=== PATIENT | female | born 1945 | race Caucasian/White ===

== ENCOUNTER 2024-08-30 10:17 | Outpatient (AMB) | payer OTHER, SELFPAY ==
--- NOTE | 2024-08-30 10:46 | MHC.OFFVIS ---
Vital Signs 08/30/24 10:47 Height 5 ft 6 in Weight 170 lb BMI 27.4 BP 122/74 Blood Pressure Location Rt brachial Position Sitting Pulse 78 Pulse Source Pulse Oximeter Pulse Oximetry (%) 95 Oxygen Delivery Method Room Air Intake Visit Reasons: dyspnea Senior Application Security Consultant Required: No Pressure Tank Operator: Pressure Tank Operator offered & declined Accompanied by: Self / Same As Patient Allergies lisinopril Adverse Reaction (Uncoded 08/30/24 11:20) cough Medication List - Last Reconciled 08/30/24 by Justyna Nolasco LPN celecoxib 200 mg PO DAILY cetirizine 10 mg PO DAILY PRN fluoxetine 10 mg PO DAILY fluticasone furoate-vilanterol 100-25 mcg/dose (Breo Ellipta) 1 inh inhalation DAILY gabapentin 100 mg PO TID hydroxyzine HCl 25 mg PO DAILY loratadine 10 mg PO DAILY meclizine 12.5 mg PO TID PRN pantoprazole 40 mg PO DAILY rosuvastatin 40 mg PO DAILY valsartan 80 mg PO DAILY HPI HPI dyspnea: Details: Zahra is a pleasant 79 year old female, former smoker, quit 30+ years ago with approximately 10 pack year history with underlying GERD. She was referred by PCP for pulmonary evaluation for ongoing dyspnea. She reports dyspnea on exertion has been progressively worsening over the last few years. She reports h/o asthma as a child, unsure if required intubation. She reports dyspnea, wheezing and intermittent dry cough as well as paroxsymal nocturnal dyspnea. PCP prescribed albuterol MDI which she has been using BID with good effect. Recent PFT suggestive of reactive airway disease with 10% improvement after bronchodilator. Reportedly recent CXR unremarkable. Denies prior h/o cardiac disease, BLE edema or orthopnea. She reports chronic rhinitis, no recent allergy testing. No pets at home. Denies any occupational exposures. Denies any pertinent family history. [facility] Social History (Updated 08/30/24 @ 10:54 by Justyna Nolasco LPN) Patient Tobacco Use Status: Former Tobacco user Tobacco use type: Cigarette Cigarette Packs Per Day: 2 Years Smoked: 20 year smoker Review of Systems Const Denies chills, Denies excessive sweating, Denies fever(s), Denies headache(s) and Denies night sweats Eyes Denies dry eyes, Denies irritation and Denies itchy eyes ENT Reports Normal hearing present, Denies headache(s), Denies nasal congestion, Denies post nasal drip and Denies sore throat Card Denies chest pain, Denies chest pain at rest, Denies chest pain with activity, Denies claudication, Denies leg edema, Reports dyspnea on exertion, Denies orthopnea and Denies paroxysmal nocturnal dyspnea Resp Denies chest congestion, Reports cough, Denies hemoptysis, Denies excessive phlegm production, Denies pain on inspiration, Denies pain with cough, Reports dyspnea on exertion, Denies stridor and Reports wheezing Musc Denies myalgias Neuro Reports Normal hearing present and Denies headache(s) Endo Denies excessive sweating Garret/Lymph Denies lymphadenopathy Aller/Immun Denies itchy eyes, Denies seasonal rhinorrhea and Reports wheezing Physical Exam Vital Signs: Last Vital Signs Pulse 78 08/30/24 10:47 BP 122/74 08/30/24 10:47 Pulse Ox 95 08/30/24 10:47 Oxygen Delivery Method Room Air 08/30/24 10:47 BMI result Body Mass Index 27.4 Const General: cooperative, healthy appearing, comfortable, no acute distress, well developed and alert Orientation/consciousness: patient oriented x3 Limitations: no limitations HEENT Head: Yes normal to inspection, Yes normocephalic and Yes atraumatic Ears: hearing grossly normal bilaterally and external ears normal Eyes General: appearance normal, both eyes and all related structures Eyelids: Yes eyelids normal Sclerae: sclerae normal EOM: EOMs intact bilaterally Neck Neck: Yes normal visual inspection and Yes no lymphadenopathy Lymphatic: no lymphadenopathy noted Chest Chest palpation & inspection: normal inspection of the chest Resp Effort & Inspection: normal respiratory effort, able to speak in complete sentences, no audible wheezes, no cough, no stridor, not tachypneic, no tripod positioning and no use of accessory muscles Auscultation: clear to auscultation bilaterally Cardio Jugular venous distension: no JVD Rate: regular rate Rhythm: regular rhythm Skin Other: warm, dry General skin exam: no rashes or lesions noted Neuro General: patient oriented x3 Cranial nerves: Yes Normal hearing present Cognition (Neuro): normal cognition Gait exam (Neuro): Normal gait present Extrem General: Yes normal to inspection, Yes capillary refill normal, Yes no clubbing, cyanosis or edema and Yes no pedal edema Psych Appearance: grossly normal and well kempt Speech and movement: Normal speech and movement present and Clear speech present Affect: normal affect Attitude: cooperative Thought process: Normal thought process present Thought content: Normal thought content present Insight: Good insight present (Psych) Judgement: Good judgement present (Psych) Assessment & Plan Assessment & Plan (1) Reactive airway disease: Code(s): J45.909 - Unspecified asthma, uncomplicated Category: Medical (2) Environmental allergies: Code(s): Z91.09 - Other allergy status, other than to drugs and biological substances Category: Medical (3) Dyspnea: Code(s): R06.00 - Dyspnea, unspecified Category: Medical Plan Zahra presents for pulmonary evaluation for ongoing dyspnea, wheezing, PND and dry cough with good response to albuterol MDI. Will empirically trial Breo. Discussed importance of good oral hygiene to prevent thrush. Will also send for RAST to assess for an allergic component. Will obtain prior CXR. Will consider home sleep study given h/o PND and day time fatigue. All questions were answered and patient is in agreement of plan. Will follow up in 6-8 weeks or sooner if needed. Orders: Orders Complete Blood Count Auto Diff Today Z91.09 - Other allergy status, other than to drugs and biological substances Immunoglobulin E Today Z91.09 - Other allergy status, other than to drugs and biological substances Resp Allergy Profile Region I Today Z91.09 - Other allergy status, other than to drugs and biological substances Medications: New fluticasone furoate-vilanterol 100-25 mcg/dose (Breo Ellipta) 1 inh inhalation DAILY 60 ea 0RF Coding Level of Care Code New Pt Level 4 (58044) Diagnoses Reactive airway disease J45.909 Environmental allergies Z91.09 Dyspnea R06.00
[2024-08-30 10:47] VITALS: BP 122/74; PULSE 78; O2SAT 95; BMI 27.4
--- OUTSIDE RECORDS SUMMARY | 2024-08-30 11:31 | XMS_ITS | Patient Health Record ---
Author Organization [facility] Address [address] [place], [place] [id number] Care Team Providers Care Phone Screener Name Role Phone Eleazar JEFF, Dr. Garcia Primary Care Provider Aditya Lou Unavailable [phone] REASON FOR REFERRAL No Information MEDICATIONS Medication SIG (Take, Route, Fr equency, Duration) Notes Start Date End Date Status Tylenol 325 MG 1 tablet as needed O rally every 4 hrs Unknown Cholesterol Management Unknown Heartburn Relief 10 MG 1 tablet as neede d Orally Twice a day Unknown IMMUNIZATIONS Vaccine Route Administration Date Status Comme nts Influenza Unknown 03/27/2017 Administered Pneumococcal Unknown 03/27/2017 Administered SOCIAL HISTORY Tobacco Use: Social History Observation Description Date Details (start date - stop date) Former Smoker NA - NA Sex Assigned At : Social History Observation Description Sex Assigned At Unknown Tobacco Use/Smoking Question Answer Notes Are you a former smoker Additional Findings: Tobacco Non-User Current no n-smoker PROBLEMS Problem Type ICD Code Onset Dates Problem Status W/U Status Risk SNOMED Code Notes Problem Spondylosis without myelopathy or radiculopathy, 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 Cervical spondylosis without myelopathy ([id number]) PLAN OF TREATMENT No Information Insurance Providers Payer Name Payer Address Payer Phone Subscriber Number Group Number Insured Name Patient Relationship to Insured Coverage Start Date Coverage End Date Medicare [address] SARAH Hodge [id number] Zahra Yao Self - patient is the insured [employer] [address] [place] [address] [phone] [id number] Zahra Yao Self - patient is the insured MEDICAL (GENERAL) HISTORY Medical History History ICD Code High Cholesterol heartburn Surgical History Surgery Date(Month/Year) hysterectomy Hospitalization History Reason Date(Month/Year) see above
--- OUTSIDE RECORDS SUMMARY | 2024-08-30 11:32 | XMS_ITS | Data Portability ---
Author Organization [facility] Address [address] [place] [address] [address] [place] [address] Care Team Providers Care Systems Administration Analyst Name Role Phone GODLEN BUSH Primary Care Provider [phone] SIMBA CONNER Board Attendant [facility] Orthopedist [phone] Assessment Encounter Date Assessment Date Assessment LastModified by Organization Details LastModified Time 07/15/2020 07/15/2020 HMR reviewed and updated on today's visit? Custodial Medication Monitoring Has your patient required or used more than a 15 day supply of narcotic medication over the last 12 months for a non-terminal diagnosis? If yes, are there alternative options besides opioids for the patient's pain? Pain Plan: Anticonvulsant Therapy: For patients with a diagnosis of diabetes was a Statin prescribed: For patients diagnosed with COPD was a Beta Agonist/Anticholi nergic prescribed? For patients diagnosed with CHF was an GORDON or ARB prescribed? Beta Gissell? For patients diagnosed with Rheumatoid Arthritis was Dmard Prescribed: For patients diagnosed with Osteoporosis was a Bisphosphonate prescribed? Preventive/Screen ing Medicine. Influenza VaccinationUp to date see Vaccination Hx Pneumonia VaccinationUp to date see Vaccination Hx Retinal Eye Exam: Result: Date: ____ Osteoporosis Screening (67+y/o): COPD Spirometry performed: Date: ____ Breast Cancer Screening (52-74 y/o, every 27 mo): Colorectal Cancer Screening (50-75 y/o): Diabetes Laboratory Screening (HgA1c/Urine Micro-Creat): I discussed and/or provided education material for the following: Behavioral health referral: Case management referral: Urinary Incontinence Education Provided: yes Physical Activity Education Provided: yes maria alejandra Not available 07/15/2020 08:44:50 Plan of Treatment Reminders Order Date Submit Date Provider Last Modified By Organization Details Last Modified Time Details Appointments None recorded. Lab CMP, serum or plasma 2020 [facility] [address], [place], [address], 11:05:54 lipid panel, serum 2020 [facility] [address], [place], [address], 1 11:05:49 vitamin D, 25-hydroxy, total, serum 2020 [facility] [address], [place], [address], 10:14:46 Referral None recorded. Procedures None recorded. Surgeries None recorded. Imaging None recorded. Medication Orders famotidine 20 mg tablet 2020 021 [email or web address] Not available 09:57:31 fluoxetine 20 mg capsule 2020 021 JOHN Not available 09:57:34 meclizine 25 mg tablet [email or web address], [place], [address], 09:17:31 Celebrex 200 mg capsule 2020 021 [facility] 9668, [address], [place], [address], 1 09:36:42 rosuvastati n 40 mg tablet 2020 021 [email or web address] 4 [facility] 5154, [address], [place], [address], 1 15:39:41 pantoprazol e 40 mg tablet,naomie yed release 2020 021 [facility] 1327, [address], [place], [address], 09:36:40 hydroxyzine HCl 25 mg tablet 2020 021 wade [facility] 5724, [address], [place], [address], 09:17:27 fluoxetine 40 mg capsule 2020 021 [facility] 5729, [address], [place], [address], 09:36:50 Patient TargetsNo targets recorded. Patient Instructions Encounter Date Encounter Id Patient Instructions Last Modified By Organization Details Last Modified Time 07/15/2020 [id number] high cholesterol : care instructions Not available 07/15/2020 09:45:04 gastroesophageal reflux disease (GERD): care instructions Not available 07/15/2020 09:45:04 preventing falls : care instructions Not available 07/15/2020 09:45:03 advance directiv es: care instructions Not available 07/15/2020 09:45:04 well visit, over 65: care instructions Not available 07/15/2020 09:45:04 A healthy lifest yle: care instructions Not available 07/15/2020 09:45:04 learning about m ood disorders Not available 07/15/2020 09:45:04 12/02/2020 [id number] learning about healthy weight Not available 12/02/2020 09:56:23 obesity educatio n information Not available 12/02/2020 09:56:23 Reason for Referral None Reported. Results Created Date Observation Date Name Description Value Unit Range Abnormal Flag Note LastModifiedBy Organization Detail LastModifiedTime 07/15/19 21 07/16/2020 lipid panel cholesterol, total 199 mg/dL 100-19 9 Not Available [place] [address] [place], [address], 07/16/2020 11:05:49 07/15/19 21 07/16/2020 lipid panel triglyceride s 151 mg/dL 0-149 above high normal Not Available [place] [address] [place], [address], 07/16/2020 11:05:49 07/15/19 21 07/16/2020 lipid panel HDL cholesterol 52 mg/dL >39 Not Available [place] [address] [place], [address], 07/16/2020 11:05:49 07/15/1907/16/2020 lipid panel VLDL cholesterol sukh 27 mg/dL 5 - 40 Not Available [place] [address] [place], [address], 07/16/2020 11:05:49 07/15/1907/16/2020 lipid panel LDL chol calc ([facility]) 120 mg/dL 0 - 99 above high normal Not Available [place] [address] [place], [address], 07/16/2020 11:05:49 07/15/19 21 07/16/2020 CMP, serum or plasm a glucose, serum 87 mg/dL 65-99 Not Available [place] [address] [place], [address], 07/16/2020 11:05:54 07/15/1907/16/2020 CMP, serum or plasm a BUN 10 mg/dL 8-27 Not Available [place] [address] [place], [address], 07/16/2020 11:05:54 07/15/19 21 07/16/2020 CMP, serum or plasm a creatinine, serum 0.76 mg/dL 0.57-1 .00 Not Available [address], [place], [address], 07/16/2020 11:05:54 07/15/19 21 07/16/2020 CMP, serum or plasm a BUN/creatini ne 13 12-28 Not Available [address], [place], [address], 07/16/2020 11:05:54 07/15/19 21 07/16/2020 CMP, serum or plasm a sodium, serum 143 mmol/ L 134-14 4 Not Available [address], [place], [address], 07/16/2020 11:05:54 07/15/19 21 07/16/2020 CMP, serum or plasm a potassium 4.7 mmol/ L 3.5-5. 2 Not Available [address], [place], [address], 07/16/2020 11:05:54 07/15/19 21 07/16/2020 CMP, serum or plasm a chloride, serum 102 mmol/ L 96-106 Not Available [address], [place], [address], 07/16/2020 11:05:54 07/15/19 21 07/16/2020 CMP, serum or plasm a carbon dioxide, total 29 mmol/ L 20-29 Not Available [address], [place], [address], 07/16/2020 11:05:54 07/15/1907/16/2020 CMP, serum or plasm a calcium, serum 9.4 mg/dL 8.7-10 .3 Not Available [address], [place], [address], 07/16/2020 11:05:54 07/15/1907/16/2020 CMP, serum or plasm a protein, total, serum 6.6 g/dL 6.0-8. 5 Not Available [place] [address], [place], [address], 07/16/2020 11:05:54 07/15/1907/16/2020 CMP, serum or plasm a albumin, serum 4.4 g/dL 3.7-4. 7 Not Available [place] [address], [place], [address], 07/16/2020 11:05:54 07/15/1907/16/2020 CMP, serum or plasm a globulin, total 2.2 g/dL 1.5-4. 5 Not Available [place] [address], [place], [address], 07/16/2020 11:05:54 07/15/1907/16/2020 CMP, serum or plasm a A/G ratio 2.0 1.2-2. 2 Not Available [place] [address], [place], [address], 07/16/2020 11:05:54 07/15/1907/16/2020 CMP, serum or plasm a bilirubin, total 0.3 mg/dL 0.0-1. 2 Not Available [place] [address], [place], [address], 07/16/2020 11:05:54 07/15/1907/16/2020 CMP, serum or plasm a alkaline phosphatase, S 59 IU/L 39-117 Not Available [place] [address], [place], [address], 07/16/2020 11:05:54 07/15/1907/16/2020 CMP, serum or plasm a AST (SGOT) 26 IU/L 0-40 Not Available [place] [address], [place], [address], 07/16/2020 11:05:54 07/15/1907/16/2020 CMP, serum or plasm a ALT (SGPT) 40 IU/L 0-32 above high normal Not Available [address] [place], [address], 07/16/2020 11:05:54 07/15/19 21 07/16/2020 CMP, serum or plasm a glom filt rate, est 77 mL/mi n >59 Not Available [address], [place], [address], 07/16/2020 11:05:54 07/15/19 21 07/16/2020 CMP, serum or plasm a if -amer ican 89 mL/mi n >59 NOTE: Persi stent reduc tion for 3 month s or more in an eGFR <60 mL/mi n/1.7 3 m2 defin es CKD. Patie nts with eGFR value s >/=60 mL/mi n/1.7 3 m2 may also have CKD if evide nce of persi stent prote inuri a is prese nt. Addit ional infor yoel tarango may be found at www.k doqi. org. Not Available [address] [place], [address], 07/16/2020 11:05:54 07/15/19 21 07/17/2020 vitam in D, 25-hy droxy , total , serum vitamin D, 25-hydroxy 39.8 NG/mL 30.0-1 00.0 Vitam in D defic iency has been defin ed by the Insti tute of Medic ine and an Endoc rine Socie ty pract ice guide line as a level of serum 25-OH vitam in D less than 20 ng/mL (1,2) . The Endoc rine Socie ty went on to furth er defin e vitam in D insuf ficie ncy as a level betwe en 21 and 29 ng/mL (2). 1. IOM (Inst itute of Medic ine). 2010. Dieta ry refer ence amanuel es for calci um and D. Kathy linares [place]: [employer] . 2. Daniel ayala MF, Zuleika ey [place], Bisch off-F errar i MANNING, et al. Evalu ation , treat ment, and preve ntion of vitam in D defic iency : an Endoc rine Socie ty clini sukh pract ice guide line. JCEM. 2010; 96(7) :1911 -30. All above tests perfo rmed at: [facility] [place] ([facility]) [address] [place] [address] Not Available [facility] ([facility]) [address], [place], [address], 07/17/2020 10:14:45 Result Notes None recorded. Problems Name Problem SNOMED Code Status Onset Date Resolution Date Notes Provider Name and Address Organization Details Recorded Time Osteopen ia 054684909 Active 201308/29/13 dexa Golden Bush MD [address], [place], [address] , [facility] 6 21:36:21 Screenin g mammogra phy Active 2014 5---> 03/03/17 Golden Bush MD [address], [place], [address] , [facility] 7 18:31:06 Tenosyno vitis of fingers 620071145 Active 2015 right third finger Golden Bush MD [address], [place], [address] , [facility] - [facility] 6 10:20:23 Serous otitis media 41675607 Active 2015 MD Billy Vasquez [address], [place], [address] , [facility] - [facility] 6 10:20:33 Anemia 321306547 Active 2015 MD Billy Vasquez [address], [place], [address] , [facility] 6 10:20:49 Depressi ve disorder 30611385 Active 2015 fluoxeti ne 20-->40 Golden Bush MD [address], [place], [address] , [facility] - [facility] 0 13:19:47 Arthriti s 0154142 Active 2015 knees back and shoulder s Golden Bush MD [address], [place], [address] , [facility] 6 10:24:55 Vertigo 183371037 Active 2015 Golden Bush MD [address], [place], [address] , [facility] 6 14:21:34 Adult health examinat ion Active 2016 colon 2013/par ker said redo in 5/mammo and dexa/// declines at all Golden Bush MD [address], [place], [address] , [facility] 0 13:19:35 Fatigue 88664726 Active 2016 tsh barely off Golden Bush MD [address], [place], [address] , [facility] 7 12:41:59 Bilatera l cataract s 27979656 Active 2016 khris, s/p removal Alona Holcomb PA-C [address], [place], [address] , [facility] 1 15:51:45 Pre-surg sonia evaluati on Active 2016 cataract s// bilatera l// norbert khris Bush MD [address], [place], [address] , [facility] 7 09:36:11 Restless legs 57512454 Active 2016 ropinaro le 1 hs Golden Bush MD [address], [place], [address] , [facility] 9 07:50:10 Neck pain 56312562 Active 2016 Golden Bush MD [address], [place], [address] , [facility] 7 13:07:08 Thoracic back sprain 669935870 Active 2016 Golden Bush MD [address], [place], [address] , [facility] 7 13:07:20 Contact dermatit is 81991439 Active 2016 Golden Bush MD [address], [place], [address] , [facility] 7 17:47:21 Food poisonin g 61912127 Active 2017 wendy lettuce Golden Bush MD [address], [place], [address] , [facility] 8 17:47:46 Vitamin D deficien cy 01275249 Active 07/2015 Golden Bush MD [address], [place], [address] , [facility] 6 21:38:05 Pure hypercho lesterol emia 270755241 Active simvasta tin 40--> crestor 40 Golden Bush MD [address], [place], [address] , [facility] 9 13:40:26 Gastroes ophageal reflux disease 164375747 Active pantopra zole 40 Golden Bush MD [address], [place], [address] , [facility] 9 07:49:30 Internal hemorrho ids 85396838 Active 2018 Golden Bush MD [address], [place], [address] , [facility] 9 09:46:57 Pain of right shoulder joint 77522730043 390866 Active 2018 may inject Golden Bush MD [address], [place], [address] , [facility] 9 09:52:24 Acute bronchit is 91347570 Active 2018 Golden Bush MD [address], [place], [address] , [facility] 9 16:03:[address] [facility] 75816198 Active 2019 Golden Bush MD [address], [place], [address] , [facility] 0 11:48:26 Body mass index 25-29 - overweig ht 337340920 [facility] 09:16:47 Disorder of bone and articula r cartilag e 660265889 Completed 10/14/2015 Golden Bush MD [address], [place], [address] , [facility] 6 21:35:39 Osteopor osis 64234940 Completed 10/14/2015 Golden Bush MD [address], [place], [address] , [facility] 6 21:37:12 Dizzines s and giddines s 306471314 Active Not Available [facility] 6 04:15:17 Otalgia 18892539 Active Not Available [facility] 6 04:15:30 Nausea 457250965 Active Not Available [facility] 6 04:15:42 Problem Notes None recorded. Procedures Surgical History Date Name Laterality Status Provider Name and Address Organization Details Recorded Time 03/03/20 17 Mammogram screening completed Golden Bush MD [address], [place], [address], [facility] 03/03/2017 18:31:32 02/25/20 17 Date of Last Mammogram completed Ilsa Pinedo [facility] 12/02/2020 09:28:35 06/26/19 13 Colonoscopy completed Cami Joinerwilfrid [facility] 10/14/2015 16:10:46 03/18/20 10 Egd biopsy single/multiple completed Juanataylor Colon [facility] 08/18/2016 14:58:59 03/11/20 10 Date of Last Colonoscopy completed Juana Colon [facility] 08/18/2016 14:58:28 03/11/20 10 Colonoscopy & polypectomy completed Juanataylor Colon [facility] 08/18/2016 15:00:29 11/18/19 09 Cltx rdl shft fx w/o mnpj completed Juanataylor Colon [facility] 08/18/2016 15:02:09 Cataract Surgery completed Golden Bush MD [address] [facility] [place], [address], [facility] 04/12/2020 11:41:51 Breast Biopsy completed Juanataylor Colon [facility] 08/18/2016 15:03:19 Removal of tonsils completed Lanie Alexandra [facility] 01/12/2016 14:11:20 Hysterectomy completed Lanie ONTIVEROS Marybeth scension [facility] 01/12/2016 14:11:20 Unlisted px meckel's dvrtclm completed Juanataylor Colon [facility] 08/18/2016 15:03:13 Imaging Results None recorded. Procedure Notes None recorded. Medical Equipment None Reported. Allergies Allergen ID Allergen Name Allergen Category Reaction Reaction Severity Criticality Documentation Date Start Date Code Code System Note Provider Name and Address Organization Details Recorded Time 32779 acetamino phen / hydrocodo ne medicatio n Not available Not available Not available 10/14/2015 34211 2 RxNorm Camivivien Cabellokarli ybarra [facility] 6 16:09:43 Medications Name Sig Start Date Stop Date Status Note LastModified by Organization Details LastModified Time fluoxetine 40 mg capsule Take 1 capsule every day by oral route. 2020 active Not Available Not Available Not Avai lable amoxicillin 500 mg capsule Take 1 capsule 3 times a day by oral route. 07/15 completed Not Available Not Available Not Available prednisone 10 mg tablet take 2 tablets bid for 3 days, take 1 tablet bid for 3 days, take 1 tablet daily for 3 days 08/06 completed Not Available Not Available Not Available ofloxacin 0.3 % eye drops 09/27 completed Not Available Not Available Not Available tizanidine 4 mg tablet Take 1 tablet every 8 hours by oral route for 14 days. 08/06 completed Not Available Not Available Not Available meloxicam 15 mg tablet Take 1 tablet every day by oral route. 03/13 completed Not Available Not Available Not Available prednisone 20 mg tablet 09/27 completed Not Available Not Available Not Available Requip 1 mg tablet Take 1 tablet every day by oral route at bedtime. 09/27 completed Not Available Not Available Not Available clobetasol 0.05 % topical cream 09/27 completed Not Available Not Available Not Available ciprofloxac in 500 mg tablet Take 1 tablet every 12 hours by oral route. 11/16 completed Not Available Not Available Not Available triamcinolo ne acetonide 0.1 % topical cream 09/27 completed Not Available Not Available Not Available simvastatin 40 mg tablet Take 1 tablet(s) every day by oral route at bedtime. 07/15 completed Not Available Not Available Not Available hydrocortis one acetate 25 mg rectal suppository Insert 1 supposito ry twice a day by rectal route for 14 days. 03/13 completed Not Available Not Available Not Available Kenalog 40 mg/mL suspension for injection 1 shot im 11/16 completed Not Available Not Available Not Available Celebrex 200 mg capsule Take 1 capsule(s ) every day by oral route. active Not Available Not Available No t Available meloxicam 7.5 mg tablet 09/27 completed Not Available Not Available Not Available Zofran 4 mg tablet 1 po q 8 hours prn nausea 11/16 completed Not Available Not Available Not Available Tessalon Perles 100 mg capsule Take 1 capsule 3 times a day by oral route. 08/06 completed Not Available Not Available Not Available famotidine 20 mg tablet Take 1 tablet twice a day by oral route for 90 days. active Not Available Not Available No t Available IBU 600 mg tablet 09/27 completed Not Available Not Available Not Available meclizine 25 mg tablet TAKE 1 TABLET BY MOUTH TWICE DAILY 12/02 completed Not Available Not Available Not Available pantoprazol e 40 mg tablet,naomie yed release TAKE 1 TABLET BY MOUTH ONCE DAILY 2020 active Not Available Not Available Not Avai lable hydroxyzine HCl 25 mg tablet Take 1 tablet 4 times a day by oral route as needed. 12/02 completed Not Available Not Available Not Available acyclovir 200 mg capsule TAKE 1 CAPSULE BY MOUTH THREE TIMES DAILY 10/12 completed Not Available Not Available Not Available fluoxetine 20 mg capsule Take 1 capsule every day by oral route. active Not Available Not Available No t Available fluticasone propionate 50 mcg/actuati on nasal spray,suspe nsion 12/15 completed Not Available Not Available Not Available Bactrim DS 800 mg-160 mg tablet Take 1 tablet every 12 hours by oral route for 10 days. 08/28 completed Not Available Not Available Not Available cyclobenzap rine 5 mg tablet Take 1 tablet 3 times a day by oral route. 07/31 completed Not Available Not Available Not Available rosuvastati n 40 mg tablet Take 1 tablet every day by oral route at bedtime. active Not Available Not Available No t Available bromfenac 0.09 % eye drops 09/27 completed Not Available Not Available Not Available fluticasone propionate 11/08 completed Not Available Not Available Not Available Zostavax (PF) 19,400 unit/0.65 mL subcutaneou s suspension 09/27 completed Not Available Not Available Not Available Ninjacof 12.5 mg-12.5 mg/5 mL oral liquid Take 10 mL every 6-8 hours by oral route as needed for 10 days. 09/27 completed Not Available Not Available Not Available Fluzone High-Dose 8079-5027 (PF) 180 mcg/0.5 mL intramuscul ar syringe 11/08 completed Not Available Not Available Not Available Fluad 65yr up(PF)45 mcg(15 mcgx3)/0.5 mL intramuscul ar syringe 09/27 completed Not Available Not Available Not Available Vitals Date Recorded Body height Body mass index (BMI) Body weight Heart rate Respiratory rate Body temperature Oxygen saturation Oxygen saturation in Arterial blood by Pulse oximetry Systolic blood pressure Diastolic blood pressure Provider Name and Address Organization Details Last Updated DateTime 1 168.15 cm 27.3 kg/m2 78837.1 g 87 /min 16 /min 98.3 [degF] 98 % 98 % 124 mm[Hg] 85 mm[Hg] Lanie Alexandra [facility] 1 08:45:55 Date Recorded Body height Body mass index (BMI) Body weight Heart rate Respiratory rate Body temperature Oxygen saturation Oxygen saturation in Arterial blood by Pulse oximetry Systolic blood pressure Diastolic blood pressure Provider Name and Address Organization Details Last Updated DateTime 1 168.15 cm 28.6 kg/m2 98518.4 4 g 75 /min 18 /min 98.1 [degF] 98 % 98 % 178 mm[Hg] 90 mm[Hg] Nathan Banks [facility] 1 09:16:30 Date Recorded Body height Body mass index (BMI) Body weight Body temperature Respiratory rate Heart rate Oxygen saturation Oxygen saturation in Arterial blood by Pulse oximetry Systolic blood pressure Diastolic blood pressure Provider Name and Address Organization Details Last Updated DateTime 1 168.15 cm 28.1 kg/m2 93972.6 6 g 98.1 [degF] 18 /min 75 /min 95 % 95 % 151 mm[Hg] 84 mm[Hg] Ilsa Pinedo [facility] 1 09:15:49 Social History Question Answer Notes LastModified by Organizat ion Details LastModified Time Tobacco Smoking Status Never Smoker Cami ybarra [facility] 10/14/2015 16:11:22 Do You Have An Advance Directive? No Information not available 02/24/2017 What Is Your Level Of Alcohol Consumption? None [email or web address] Information not available 02/24/2017 Are You Blind Or Do You Have Difficulty Seeing? No [email or web address] Information not available 02/24/2017 What Is Your Level Of Caffeine Consumption? Occasional [email or web address] Information not available 02/24/2017 How Much Tobacco Do You Chew? None [email or web address] Information not available 02/24/2017 What Is Your Code Status? Full Code [email or web address] Information not available 03/13/2019 Are You Currently Employed? Yes [email or web address] Information not available 02/24/2017 Are You Deaf Or Do You Have Serious Difficulty Hearing? No [email or web address] Information not available 02/24/2017 What Type Of Diet Are You Following? REGULAR [email or web address] Information not available 02/24/2017 Which Illicit Or Recreational Drugs Have You Used? None Information not available 02/24/2017 Do You Or Have You Ever Used E-cigarettes Or Vape? 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 Single Level Home Information not available 02/24/2017 What Is Your Home Situation? Other [email or web address] Information not available 02/24/2017 Live Alone Or With Others? With Others [email or web address] Information not available 02/24/2017 Have You Had A Fall Within The Last Year With Injury No Information not available 02/24/2017 Walking With Aids? No [email or web address] Information not available 02/24/2017 What Type Of Walking Aid? None [email or web address] Information not available 02/24/2017 Patients Living Environment Safe And Secure? No [email or web address] Information not available 02/24/2017 High Risk For Falls? No [email or web address] Information not available 02/24/2017 If You Have Any Questions, Our Care Team Is Here For You. We Can Help You Find The Screening Option That Is Right For You. Would You Like To Be Given Information About Colon Cancer And Screening Options? No [email or web address] Information not available 03/13/2019 Readiness To Learn Accepting Information not available 02/24/2017 Barriers To Learning Language [email or web address] Information not available 10/23/2017 Learning Preferences No Preferences [email or web address] Information not available 02/24/2017 In The Last 12 Months Did You Skip Medications To Save Money? Yes Information not available 05/27/2019 In The Last 12 Months, Was There A Time When You Needed To See A Doctor But Could Not Because Of Cost? No Information not available 05/27/2019 In The Last 12 Months, Have You Ever Had To Go Without Health Care Because You Didn? t Have A Way To Get There? No Information not available 05/27/2019 In The Last 12 Months Did You Ever Eat Less Than You [place] You Should Because There Wasn? t Enough Money For Food? No Information not available 05/27/2019 In The Past 12 Months Has The Electric, Gas, Oil, Or Water Company Threatened To Shut Off Services In Your Home? No Information not available 05/27/2019 Are You Worried That In The Next 2 Months You May Not Have Stable Housing? No Information not available 05/27/2019 Do You Feel Physically And Emotionally Unsafe Where You Currently Live? No Information not available 05/27/2019 Do You Want Help Finding Or Keeping Work Or A Job? No Information not available 05/27/2019 Do You Want Help With School Or Training? For Example, Starting Or Completing Job Training Or Getting A High School Diploma, GED, Or Equivalent? No Information not available 05/27/2019 Do You Often Feel Lonely? Yes Information not available 05/27/2019 Do You Want Help With Any Of Your Needs? No Information not available 05/27/2019 Are Any Of Your Needs Urgent? No Information not available 05/27/2019 Have You Had A Fever And/or Symptoms Of A Lower Respiratory Illness (cough, Difficulty Breathing, Etc)? No [email or web address] Information not available 04/13/2020 Marital Status Lamont [email or web address] Informatio n not available 10/14/2015 What Was The Date Of Your Most Recent Tobacco Screening? 12/02/2020 [email or web address] Information not available 12/02/2020 How Many Children Do You Have? 1 Tushar [email or web address] Information not available 10/14/2015 Do You Use Protection During Sex? No [email or web address] Information not available 02/24/2017 What Is Your Relationship Status? [email or web address] Information not available 02/24/2017 Do You Use Your Seat Belt Or Car Seat Routinely? Yes [email or web address] Information not available 02/24/2017 Seat Belts Used Routinely Yes [email or web address] Information not available 02/24/2017 Are You Sexually Active? Yes [email or web address] Information not available 02/24/2017 Smoke Alarm In Home Yes [email or web address] Information not available 02/24/2017 Do You Have Smoke And Carbon Monoxide Detectors In Your Home? Yes [email or web address] Information not available 02/24/2017 Are You Passively Exposed To Smoke? No [email or web address] Information not available 02/24/2017 Do You Or Have You Ever Used Smokeless Tobacco? Never Used Smokeless Tobacco [email or web address] Information not available 03/13/2019 How Much Tobacco Do You Smoke? No [email or web address] Information not available 02/24/2017 General Stress Level Low [email or web address] Information not available 02/24/2017 Do You Use Sunscreen Routinely? Yes igttfja09 Information not available 02/24/2017 On What Date Was Tobacco Cessation Counseling Provided? 12/02/2020 wade Information not available 12/02/2020 How Many Years Have You Smoked Tobacco? 0 [email or web address] Information not available 02/24/2017 Work Related Injury? No [email or web address] Information not available 02/24/2017 Do You Have Symptoms Associated With Zika Virus (fever, Rash, Joint Pain, Or Conjunctivitis)? No Information not available 02/24/2017 Have You Recently (within The Last 12 Weeks, Or During A Current ) Traveled To Or Lived In A Zika-affected Area? No [email or web address] Information not available 02/24/2017 Sex: Female Functional Status Question Answer Note LastModified by Organizat ion Details LastModified Time Do you have transportation difficulties? No [email or web address] Information not available 02/24/2017 Are you able to walk? YESWOREST [email or web address] Information not available 03/13/2019 Do you have difficulty doing errands alone? No [email or web address] Information not available 02/24/2017 Are you able to care for yourself? Yes nzamcvo60 Information not available 02/24/2017 Do you have difficulty dressing or bathing? No [email or web address] Information not available 02/24/2017 What is your exercise level? None Information not available 02/24/2017 Mental Status Question Answer Note LastModified by Organization D etails LastModified Time Do you have difficulty concentrating, remembering or making decisions? No [email or web address] Information no t available 02/24/2017 Family History Relationship Description Onset Age of this Age Resolved Age Notes LastModified by Organization Details LastModified Time Father Malignant neoplasm of brain [email or web address] Not available 2019 12:28:35 Father Cirrhosis of liver [email or web address] Not available 2019 12:28:35 Son Malignant neoplastic disease cancer in bone or muscle of leg knee// 40 years old kdoole Not available 01/12/2016 14:10:43 Medical History Condition Response cancer N heart disease N arthritis N lung disease N allergies Y other gastrointestinal issue Y depression Y osteoporosis Y high blood pressure N eczema Y other Y acid reflux/GERD Y neurologic disease N diabetes mellitus N musculoskeletal disease N high cholesterol N Gynecological History Statement/Question Response Location of Mammogram [place] Date of Last Mammogram 02/24/2017 Date of Last Colonoscopy 03/11/2010 Mammogram in Past 24 months Y Date of Last Bone Density 01/26/2017 Date of Last Pap Smear Would you like to schedule Mammogram Tristian ointment? N Obstetrics History GPAL:G 1 P 0 0 0 0 Immunizations Vaccine Type Date Status Note Provider Nam e and Address Organization Details Recorded Time COVID-19, mRNA, LNP-S, PF, 30 mcg/0.3 mL dose 1 completed Kwaku Guzman OM, [facility], [facility] 08/14/2020 13:22:02 Influenza, split virus, quadrivalent, preservative 0 completed Golden Bush MD [address] [facility] [place], [address], [facility] 04/13/2020 13:17:14 Influenza, high-dose, trivalent, PF 7 completed Not Available [facility] 07/13/2019 02:42:03 Pneumococcal conjugate PCV 13 8 completed Not Available [facility] 07/13/2019 02:24:58 pneumococcal polysaccharide PPV23 9 completed Not Available [facility] 07/13/2019 02:28:18 Influenza, split virus, quadrivalent, PF 9 completed Not Available [facility] 07/13/2019 02:56:29 COVID-19, mRNA, LNP-S, PF, 30 mcg/0.3 mL dose 1 completed Nachojemima Bach CMA null, [place] - [facility] 07/24/2020 15:37:21 Past Encounters Encounter ID Performer Location Encounter Start Date Encounter Closed Date Diagnosis/Indication Diagnosis SNOMED-CT Code Diagnosis ICD10 Code Diagnosis Note [id number] [facility] [place] [address] [facility] [address] [place] [address] 05/13/2014 14:08:16 05/13/2014 15:54:50 Otalgia 77123311 Nausea 238004023 Dizziness and giddiness 222568500 [id number] [facility] [address] [facility] [address] [place] [address] 08/25/2014 08:36:20 08/25/2014 11:59:51 Pure hypercholesterolemia 171441174 Gastroesop hageal reflux disease 322356831 Vitamin D deficiency 80156011 Disorder o f bone and articular cartilage 842120691 [id number] [facility] [address] [address] [place] [address] 08/25/2014 00:00:00 08/26/2014 00:00:00 Pure hypercholesterolemia 298531101 [id number] [facility] [place] [address] [facility] [address] [place] [address] 08/11/2015 08:23:41 08/11/2015 17:37:42 Pure hypercholesterolemia 963901400 Vitamin D deficiency 89130364 Osteoporosis 29932593 Gastroesop hageal reflux disease 514693398 [id number] [facility] [address] [address] [place] [address] 08/11/2015 00:00:00 08/12/2015 00:00:00 Gastroesophageal reflux disease 048533861 [id number] Golden Bush MD [facility] [place] [address], [address] [place] [address] 10/15/2015 09:31:27 10/15/2015 14:43:52 Serous otitis media 72723165 H65.01 Tenosynovi tis of fingers 094041272 M65.849 offered steroids Pure hypercholesterolemia 929553798 E78.0 cmp lipid Vitamin D deficiency 347 24892 E55.9 25 oh vit d Anemia 090716433 D64.9 cbc ferritin Depressive disorder 3548 9007 F32.9 Arthritis 8958087 M19.90 [id number] [facility] [address] [place] [address] 10/15/2015 00:00:00 10/16/2015 00:00:00 Anemia 786898005 [id number] Golden Bush MD [facility] [address] [facility] [address], [address] [place] [address] 01/12/2016 13:40:02 01/12/2016 17:36:52 Vertigo 974327983 R42 Gastroesop hageal reflux disease 659536793 K21.9 Serous otitis media 8032 7007 H65.01 [id number] Golden Bush MD [facility] [place] [address] [facility] [address], [address] [place] [address] 08/10/2016 09:12:06 08/10/2016 12:54:33 Adult health examination 098099559 Z00.00 Screening mammography 24 470809 Z12.31 Osteopenia 502496707 M85 .80 Vitamin D deficiency 347 47207 E55.9 Pure hypercholesterolemia 811267791 E78.00 Gastroesop hageal reflux disease 708622550 K21.9 Depressive disorder 3548 9007 F32.9 Fatigue 53757268 R53.83 Bilateral cataracts 9572 2003 H26.9 [id number] Golden Bush MD [facility] [address] [facility] [address], [address] [place] [address] 10/03/2016 11:34:46 10/03/2016 15:03:29 Adult health examination 641433354 Z00.00 Osteopenia 819658392 M85 .80 Screening mammography 24 583790 Z12.31 Vitamin D deficiency 347 45062 E55.9 Fatigue 27675959 R53.83 Bilateral cataracts 9572 2003 H26.9 pinedo Menopause 926563312 N95. 1 [id number] Golden Bush MD [facility] [address] [facility] [address], [address] [place] [address] 11/08/2016 08:38:17 11/08/2016 10:08:22 Pre-surgery evaluation 866716702 Z01.818 Bilateral cataracts 9572 2003 H26.9 pinedo Arthritis 0101030 M19.90 Restless legs 08102417 G 25.81 [id number] Golden Bush MD [facility] [address] [facility] [address], [address] [place] [address] 12/15/2016 11:43:35 12/15/2016 13:16:55 Neck pain 09972511 M54.2 Thoracic back sprain 274 853681 S23.3XXA Tenosynovi tis of fingers 176873270 M65.849 offered steroids/i njected 12/15/16 [id number] Golden Bush MD [facility] [address] [facility] [address], [address] [place] [address] 02/24/2017 16:21:35 02/24/2017 18:00:17 Contact dermatitis 88847971 L25.9 [id number] Alona Holcomb PA-C [facility] [address] [facility] [address], [address] [place] [address] 07/31/2017 10:35:07 07/31/2017 12:45:01 Adult health examination 949728503 Z00.01 Counseling 081283903 Z71 .9 Active or passive immunization 642136100 Z23 Pure hypercholesterolemia 230060238 E78.00 Gastroesop hageal reflux disease 305827205 K21.9 Restless legs 43797122 G 25.81 Arthritis 5744974 M19.90 Dizziness 758385541 R42 Depressive disorder 3548 9007 F32.1 Contact dermatitis 04522 004 L25.9 Fatigue 53266272 R53.83 Increased frequency of urination 034449932 R35.0 Acute urin jonathan tract infection 891530862 N39.0 [id number] Alona ZACARIAS-C [facility] [address] [facility] [address], [address] [place] [address] 08/02/2017 10:24:01 08/02/2017 15:28:51 Pure hypercholesterolemia 327816355 E78.00 Neck pain 30830883 M54.2 Hemorrhoids 33396550 K64 .9 [id number] Alona ZACARIAS-C [facility] [address] [facility] [address], [address] [place] [address] 08/28/2017 16:38:35 08/28/2017 17:41:46 Neck pain 59916718 M54.2 Otitis externa 1738245 H 60.91 [id number] Golden Bush MD [facility] [address] [facility] [address], [address] [place] [address] 10/23/2017 16:24:32 10/23/2017 17:52:17 Body mass index 25-29 - overweight 486656276 Z68.27 Food poisoning 19811795 A05.9 possibly// wendy lettuce Nausea 851262661 R11.0 [id number] Alona ZACARIAS-C [facility] [place] [address] [facility] [address], [address] [place] [address] 11/16/2017 10:25:29 11/16/2017 17:04:53 Viral upper respiratory tract infection 986019861 J06.9 [id number] Alona Holcomb PA-C [facility] [address] [facility] [address], [address] [place] [address] 08/06/2018 10:24:39 08/06/2018 15:58:10 Cough 57836373 R05 Viral uppe r respiratory tract infection 175387749 J06.9 Pure hypercholesterolemia 385228269 E78.00 Pain in throat 031909595 R07.0 [id number] Golden Bush MD [facility] [place] [address] [facility] [address], [address] [place] [address] 09/27/2018 09:06:00 09/27/2018 10:53:33 Adult health examination 450444268 Z00.01 Body mass index 25-29 - overweight 934275298 Z68.27 E66.3 Pure hypercholesterolemia 875229051 E78.00 Gastroesop hageal reflux disease 220183213 K21.9 Depressive disorder 3548 9007 F32.9 Vitamin D deficiency 347 59856 E55.9 Arthritis 0439389 M19.90 Internal hemorrhoids 904 35870 K64.8 [id number] Alona Holcobm PA-C [facility] [address] [facility] [address], [address] [place] [address] 03/13/2019 08:17:10 03/13/2019 11:15:13 Adult health examination 150249499 Z00.00 Counseling 355500708 Z71 .9 Active or passive immunization 174750567 Z23 Contact dermatitis 55532 004 L25.9 Gastroesop hageal reflux disease 822583906 K21.9 Pure hypercholesterolemia 283716317 E78.00 Osteopenia 922619860 M85 .80 Restless legs 65189441 G 25.81 Vitamin D deficiency 347 00656 E55.9 Depressive disorder 3548 9007 F32.1 Bilateral cataracts 9572 2003 H26.9 [id number] Golden Bush MD [facility] [address] [facility] [address], [address] [place] [address] 05/27/2019 15:27:35 05/27/2019 16:50:40 Body mass index 25-29 - overweight 519346087 Z68.28 E66.3 Serous otitis media 8032 7007 H65.01 Acute bronchitis 0108023 2 J20.9 [id number] Golden Bush MD [facility] [address] [facility] [address], [address] [place] [address] 04/13/2020 12:13:09 04/13/2020 14:15:28 Pure hypercholesterolemia 759232070 E78.00 Depressive disorder 3548 9007 F32.9 Screening mammography 24 757867 Z12.31 declines Postmenopausal state 764 03609 Z78.0 declines Arthritis 2707217 M19.90 Tenosynovi tis of fingers 129875491 M65.849 offered steroids/i njected 12/15/16 [phone] (pt number) [id number] Alona Holcomb PA-C [facility] [address] [facility] [address], [address] [place] [address] 07/15/2020 08:38:08 07/15/2020 11:03:08 Adult health examination 918940959 Z00.00 Body mass index 25-29 - overweight 527066292 Z68.27 E66.3 Depressive disorder 3548 9007 F32.1 Gastroesop hageal reflux disease 929475721 K21.9 Pure hypercholesterolemia 985640305 E78.00 Vitamin D deficiency 347 66909 E55.9 Arthritis 8452239 M19.90 Osteopenia 759407659 M85 .80 [id number] Gunnar Doshi MD [facility] S[facility]COVID19 [address] [place] [address] 07/24/2020 14:57:02 07/24/2020 16:35:12 Administration of SARS-CoV-2 antigen vaccine 341455812 Z23 [id number] Gunnar Doshi MD [facility] S[facility]COVID19 [address] [place] [address] 08/14/2020 13:09:45 08/14/2020 13:30:22 Administration of SARS-CoV-2 antigen vaccine 300743706 Z23 [id number] Alona Holcomb PA-C [facility] [address] [facility] [address], [address] [place] [address] 10/12/2020 08:42:53 10/12/2020 10:38:43 Arthritis 6155662 M19.90 Depressive disorder 3548 9007 F32.1 Contact dermatitis 85183 004 L25.9 Gastroesop hageal reflux disease 126786160 K21.9 Pure hypercholesterolemia 236848281 E78.00 Vertigo 687277294 R42 [id number] Alona Holcomb PA-C [facility] [address] [facility] [address] [address], [address] [place] [address] 12/02/2020 08:44:58 12/02/2020 11:41:31 Body mass index 25-29 - overweight 981304779 Z68.27 E66.3 Depressive disorder 3548 9007 F32.1 Gastroesop hageal reflux disease 246439740 K21.9 Health Concerns Section Related Observation LastModified by Organization Detai ls LastModified Time None Recorded Concern Status LastModified by Organization Details LastModified Time None Recorded Advance Directives Directive N: Payers Encounter Date Sequence Insurance Name Policy Number Policy Schultz Covered Member ID Schultz Member ID Guarantor Name 07/15/2020 2 WPS - FOR LIFE (MEDICARE SUPPLEMENT) Zahra Yao [id number] Zahra Yao 07/15/2020 1 [employer] (MEDICARE REPLACEMENT/ADV ANTAGE - HMO) [id number] Zahra Yao [id number] Zahra Yao 07/24/2020 2 WPS - FOR LIFE (MEDICARE SUPPLEMENT) Zahra Yao [id number] Zahra Yao 08/14/2020 1 [employer] (MEDICARE REPLACEMENT/ADV ANTAGE - HMO) [id number] Zahra Yao [id number] Zahra Yao 08/14/2020 3 [place] Zahra Yao [id number] Zahra Yao 10/12/2020 2 [employer]PS - FOR LIFE (MEDICARE SUPPLEMENT) Zahra Yao [id number] Zahra Yao 10/12/2020 1 [employer] (MEDICARE REPLACEMENT/ADV ANTAGE - PPO) Zahra Yao [id number] Zahra Yao 12/02/2020 2 WPS - FOR LIFE (MEDICARE SUPPLEMENT) Zahra Yao [id number] Zahra Yao 12/02/2020 1 [place] (MEDICARE REPLACEMENT/ADV ANTAGE - HMO) [id number] Zahra Yao [id number] Zahra Yao Notes Date Note Type Note Provider Name and Address Organization Details Recorded Time 07/15/2020 text/html [place] [facility] TemplateReported bypatient.Reason for Visit:Subsequent Annual Wellness Visit Preventative Screening/Counseling:fe male patient Reported Health:good Immunization Status:up-to-date Diet:regular diet Nutrition:eats mostly healthy diet Dietary Details:well-balanced diet Exercise Frequency & Type of Exercise:physical activity level same as compared to last year; exercise less than 3 times/week Weight Concerns:normal BMI Osteoporosis Risk Assessmentcaucasian; female; age >50 Reported Difficulty with the Following:no change in memory compared to last year Depression Screeningmoderate Activities of Daily Living:able to bathe independently; able to contol urination and bowels; able to dress independently; able to feed self independently; able to get out of chair or bed independently; able to groom independently; able to shop independently; able to toilet independently; Able to walk without difficulty Instrumental activities of daily living:able to manage medications independently; able to manage money independently; able to do house work independently; able to meal prep independently; able to use the phone independently; able to grocery shop independently Advanced Directivenone reported Sensory Evaluationnormal speech; normal hearing; normal vision 360 wellness please see scanned attachment Alona Holcomb PA-C [address] [place], [address], [place] - [facility] 08/05/2020 15:52:57 10/12/2020 text/html VertigoReported bypatient.Onset/Timing: ongoing; fluctuating Quality:room spinning; lightheadedness; unsteadiness; off balance; faint feeling Duration:continuous; sensation/episode variable length Severity:does not limit daily activities; no falls; no difficulty with driving Location:no earache; no hearing loss; no ear fullness; no associated ringing in ears Context:no history of head trauma Alleviating factors:relief with [employer] sedatives Meclizine; sitting down; looking at fixed object Aggravating factors:position change; head movement Associated Symptoms:no headache; no neck pain Alona Holcomb PA-C [address] [place] [address], [place], [address], [facility] 10/12/2020 15:45:03 12/02/2020 text/html DepressionReport ed bypatient.Quality:mood worse Severity:denies suicidal ideations; able to maintain relationships; does not interfere with activities of daily living Duration:symptoms lasting over 2 weeks Onset/Timing:gradual; still present; 2 months ago Context:family problems(does not live close enough) Modifying Factors:medications as directed Associated Symptoms:denies homicidal ideations; no significant weight gain; no significant weight loss; no visual/auditory hallucinations; no delusions; no shortness of breath; no panic; appetite good;depression;lonelin essReflux/GERDReported bypatient.Symptomsheart burn Quality:burning Severity:worsening Duration:present <1 month Onset/Timing:gone now; occurs immediately after meals Alleviating Factors:non-spicy foods Associated Symptoms:no frequent coughing Alona Holcomb PA-C [address] [facility] [place], [address], [facility] 12/09/2020 14:36:10 OBGyn Episode No OBEpisode recorded.
== END 2024-08-30 11:15 | disposition home or self-care (01) ==
PROVIDERS: PCP Family Medicine; Visit Provider Nurse Practitioner Family
DX: J45.909 Unspecified asthma, uncomplicated (principal); Z91.09 Other allergy status, other than to drugs and biological substances; R06.00 Dyspnea, unspecified
CPT/HCPCS: 99204

== ENCOUNTER 2024-08-30 11:25 | Outpatient (REF) | payer OTHER, SELFPAY ==
[2024-08-30 14:15] LABS: MANUAL DIFF FLAG NO
[2024-08-30 14:22] LABS: Basophils Percent Auto 0.4 % (0-2); Eosinophils Absolute Auto 0.1 X10*3/uL (0.0-0.4); Eosinophils Percent Auto 1.9 % (0-4); Hematocrit 40.3 % (37.0-47.0); Hemoglobin 12.7 g/dl (12.0-16.0); Imm Gran Abs Auto 0.01 X10*3/uL (0.00-0.03); Imm Gran Pct Auto 0.2 % (0.0-0.4); Lymphocytes Absolute Auto 2.7 X10*3/uL (1.2-4.9); Lymphocytes Percent Auto 55.9 % (20-40); Mean Corpuscular HGB Conc 31.5 g/dl (31.0-35.0); Mean Corpuscular Hemoglobin 28.9 pg (27.0-33.0); Mean Corpuscular Volume 91.6 fL (80.0-98.0); Mean Platelet Volume 10.2 fL (9.4-12.3); Monocytes Absolute Auto 0.4 X10*3/uL (0.1-1.2); Neutrophils Absolute Auto 1.6 x10*3/uL (2.0-8.3); Neutrophils Percent Auto 33.6 % (45-73); Platelet Count 296 X10*3/uL (160-400); Red Cell Distribution Width 12.4 % (11.0-16.0); White Blood Count 4.9 X10*3/uL (4.8-10.8)
[2024-09-02 19:49] LABS: Immunoglobulin E 23 kU/L (<OR=114)
[2024-09-03 04:03] LABS: Class Alternaria alternata 0; Class Aspergillus fumigatus 0; Class Bermuda Grass 0; Class Birch 0; Class Cat Dander 0; Class Cladosporium herbarum 0; Class Cockroach 0; Class Common Ragweed 0; Class Cottonwood 0; Class Derm. pterony 0; Class Dermatophagoides farinae 0; Class Dog Dander 0; Class Elm 0; Class Maple Box Elder 0; Class Mountain Cedar 0; Class Mouse Urine Protein 0; Class Mugwort 0; Class Oak 0; Class Penicillium crysogenum 0; Class Rough Pigweed 0; Class Sheep Sorrel 0; Class Sycamore 0; Class Timothy Grass 0; Class Walnut Tree 0; Class White Ash 0; Class White Mulberry 0; D001 IgE D pteronyssinus <0.10 kU/L; D002 - IgE D farinae <0.10 kU/L; E001 - IgE Cat Dander <0.10 kU/L; E005 - IgE Dog Dander <0.10 kU/L; E072-IgE Mouse Urine <0.10 kU/L; G002 IgE Bermuda Grass <0.10 kU/L; G006 - IgE Timothy Grass <0.10 kU/L; I006-IgE Cockroach, German <0.10 kU/L; Immunoglobulin E 23 kU/L (<OR=114); M001 IgE Penicillium chrysogen <0.10 kU/L; M002 - IgE Cladosporium herbar <0.10 kU/L; M003 - IgE Aspergillus fumigat <0.10 kU/L; M006 - IgE Alternaria alternat <0.10 kU/L; T001 IgE Maple/Box Elder <0.10 kU/L; T003 IgE Common Silver Birch <0.10 kU/L; T006 - IgE Cedar, Mountain <0.10 kU/L; T007 - IgE Oak, White <0.10 kU/L; T008 IgE Elm, American <0.10 kU/L; T010 - IgE Walnut <0.10 kU/L; T011 - IgE Maple Leaf Sycamore <0.10 kU/L; T014 - IgE Cottonwood <0.10 kU/L; T015 - IgE Ash, White <0.10 kU/L; T070 - IgE White Mulberry <0.10 kU/L; W001 - IgE Ragweed, Short <0.10 kU/L; W006 - IgE Mugwort <0.10 kU/L; W014 IgE Pigweed, Common <0.10 kU/L; W018 IgE Sheep Sorrel <0.10 kU/L
== END 2024-08-30 11:26 | disposition home or self-care (01) ==
LOC: HO.WFDLDS 11:25
PROVIDERS: Visit Provider Nurse Practitioner Family
DX: Z91.09 Other allergy status, other than to drugs and biological substances (principal); J45.909 Unspecified asthma, uncomplicated; R06.00 Dyspnea, unspecified
CPT/HCPCS: 36415; 82785; 85025; 86003; 99202

== ENCOUNTER 2024-10-09 09:21 | Outpatient (AMB) | payer OTHER, SELFPAY ==
--- OUTSIDE RECORDS SUMMARY | 2024-10-09 10:15 | XMS_ITS | Patient Health Record ---
Author Organization [facility] Address [address] [place], [place] [address] Care Team Providers Care Agriculture Consultant Name Role Phone Eleazar JEFF, Dr. Garcia Primary Care Provider Aditya Lou Unavailable [phone] Reason For Referral No Information Medications Medication SIG (Take, Route, Fr equency, Duration) Notes Start Date End Date Status Tylenol 325 MG 1 tablet as needed O rally every 4 hrs Unknown Cholesterol Management Unknown Heartburn Relief 10 MG 1 tablet as neede d Orally Twice a day Unknown Immunizations Vaccine Route Administration Date Status Comme nts Influenza Unknown 03/27/2017 Administered Pneumococcal Unknown 03/27/2017 Administered Social History Tobacco Use: Social History Observation Description Date Details (start date - stop date) Former Smoker NA - NA Tobacco Use/Smoking Question Answer Notes Are you a former smoker Additional Findings: Tobacco Non-User Current no n-smoker Problems Problem Type SNOMED Code ICD Code Onset Dates Problem Status W/U Status Risk Notes Problem Cervical spondylosis without myelopathy (929441408) Spondylosis without myelopathy or radiculopathy, 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 Plan Of Treatment No Information Insurance Providers Payer Name Payer Address Payer Phone Subscriber Number Group Number Insured Name Patient Relationship to Insured Coverage Start Date Coverage End Date Medicare [address] SARAH Hodge [id number] Zahra Yao Self - patient is the insured [employer] [address] [place] [address] [id number] Zahar Yao Self - patient is the insured Medical (General) History Medical History History ICD Code High Cholesterol heartburn Surgical History Surgery Date(Month/Year) hysterectomy Hospitalization History Reason Date(Month/Year) see above
--- OUTSIDE RECORDS SUMMARY | 2024-10-09 10:15 | XMS_ITS | Data Portability ---
Author Organization Aimee Fitzgerald[facility] Address [address] [place] [address] [address] [place] [address] Care Team Providers Care Keyboard Operator Name Role Phone GOLDEN BUSH Primary Care Provider [phone] SIMBA CONNER Institutional Asset Manager [facility] Orthopedist Assessment Encounter Date Assessment Date Assessment LastModified by Organization Details LastModified Time 07/15/2020 07/15/2020 HMR reviewed and updated on today's visit? Fdc Medication Monitoring Has your patient required or [...] recorded. Lab CMP, serum or plasma 2020 [facility]), [address] [facility], [place], [address], 11:05:54 lipid panel, serum 2020 [facility]), [address] [facility], [place], [address], 1 11:05:49 vitamin D, 25-hydroxy, total, serum 2020 [place]), [address] [facility], [place], [address], 10:14:46 Referral None recorded. Procedures None recorded. Surgeries None recorded. Imaging None recorded. Medication Orders famotidine 20 mg tablet 2020 021 [email or web address] 4 Not available 09:57:31 fluoxetine 20 mg capsule 2020 021 JOHN Not available 09:57:34 meclizine 25 mg tablet [email or web address], [address], [place], [address], 09:17:31 Celebrex 200 mg capsule 2020 021 [facility] 3894, [address], [place], [address], 1 09:36:42 rosuvastati n 40 mg tablet 2020 021 [email or web address] 4 [facility] 4100, [address], [place], [address], 1 15:39:41 pantoprazol e 40 mg tablet,naomie yed release 2020 021 [facility] 8524, [address], [place], [address], 09:36:40 hydroxyzine HCl 25 mg tablet 2020 021 wade [facility] 5761, [address], [place], [address], 09:17:27 fluoxetine 40 mg capsule 2020 021 [facility] 5719, [address], [place], [address], 09:36:50 Patient TargetsNo targets recorded. Patient Instructions Encounter Date Encounter Id Patient Instructions Last Modified By Organization Details Last Modified Time 07/15/2020 [id number] high cholesterol : care instructions Not available [...] ood disorders Not available 07/15/2020 09:45:04 12/02/2020 [id number] learning about healthy weight Not available 12/02/2020 09:56:23 obesity educatio n information Not available 12/02/2020 09:56:23 Reason for Referral None Reported. Results Created Date Observation Date Name Description Value Unit Range Abnormal Flag Note LastModifiedBy Organization Detail LastModifiedTime 07/15/19 21 07/16/2020 lipid panel cholesterol, total 199 mg/dL 100-19 9 Not Available [place] [address] [place], [address], 07/16/2020 11:05:49 07/15/19 21 07/16/2020 lipid panel triglyceride s 151 mg/dL 0-149 above high normal Not Available [place] [address] [place], [address], 07/16/2020 11:05:49 07/15/19 21 07/16/2020 lipid panel HDL cholesterol 52 mg/dL >39 Not Available [place] [address] [place], [address], 07/16/2020 11:05:49 07/15/1907/16/2020 lipid panel VLDL cholesterol sukh 27 mg/dL 5 - 40 Not Available [place] [address] [place], [address], 07/16/2020 11:05:49 07/15/1907/16/2020 lipid panel LDL chol calc ([facility]) 120 mg/dL 0 - 99 above high normal Not Available [place] [address] [place], [address], 07/16/2020 11:05:49 07/15/19 21 07/16/2020 CMP, serum or plasm a glucose, serum 87 mg/dL 65-99 Not Available [place] [address] [place], [address], 07/16/2020 11:05:54 07/15/1907/16/2020 CMP, serum or plasm a BUN 10 mg/dL 8-27 Not Available [place] [address] [place], [address], 07/16/2020 11:05:54 07/15/19 21 07/16/2020 CMP, serum or plasm a creatinine, serum 0.76 mg/dL 0.57-1 .00 Not Available [address], [place], [address], 07/16/2020 11:05:54 07/15/19 21 07/16/2020 CMP, serum or plasm a BUN/creatini ne 13 12-28 Not Available [address], [place], [address], 07/16/2020 11:05:54 07/15/19 21 07/16/2020 CMP, serum or plasm a sodium, serum 143 mmol/ L 134-14 4 Not Available [address], [place], [address], 07/16/2020 11:05:54 07/15/19 21 07/16/2020 CMP, serum or plasm a potassium 4.7 mmol/ L 3.5-5. 2 Not Available [address], [place], [address], 07/16/2020 11:05:54 07/15/19 21 07/16/2020 CMP, serum or plasm a chloride, serum 102 mmol/ L 96-106 Not Available [address], [place], [address], 07/16/2020 11:05:54 07/15/19 21 07/16/2020 CMP, serum or plasm a carbon dioxide, total 29 mmol/ L 20-29 Not Available [address], [place], [address], 07/16/2020 11:05:54 07/15/1907/16/2020 CMP, serum or plasm a calcium, serum 9.4 mg/dL 8.7-10 .3 Not Available [address], [place], [address], 07/16/2020 11:05:54 07/15/1907/16/2020 CMP, serum or plasm a protein, total, serum 6.6 g/dL 6.0-8. 5 Not Available [place] [address], [place], [address], 07/16/2020 11:05:54 07/15/1907/16/2020 CMP, serum or plasm a albumin, serum 4.4 g/dL 3.7-4. 7 Not Available [place] [address], [place], [address], 07/16/2020 11:05:54 07/15/1907/16/2020 CMP, serum or plasm a globulin, total 2.2 g/dL 1.5-4. 5 Not Available [place] [address], [place], [address], 07/16/2020 11:05:54 07/15/1907/16/2020 CMP, serum or plasm a A/G ratio 2.0 1.2-2. 2 Not Available [place] [address], [place], [address], 07/16/2020 11:05:54 07/15/1907/16/2020 CMP, serum or plasm a bilirubin, total 0.3 mg/dL 0.0-1. 2 Not Available [place] [address], [place], [address], 07/16/2020 11:05:54 07/15/1907/16/2020 CMP, serum or plasm a alkaline phosphatase, S 59 IU/L 39-117 Not Available [place] [address], [place], [address], 07/16/2020 11:05:54 07/15/1907/16/2020 CMP, serum or plasm a AST (SGOT) 26 IU/L 0-40 Not Available [place] [address], [place], [address], 07/16/2020 11:05:54 07/15/1907/16/2020 CMP, serum or plasm a ALT (SGPT) 40 IU/L 0-32 above high normal Not Available [address] [place], [address], 07/16/2020 11:05:54 07/15/19 21 07/16/2020 CMP, serum or plasm a glom filt rate, est 77 mL/mi n >59 Not Available [address], [place], [address], 07/16/2020 11:05:54 07/15/19 21 07/16/2020 CMP, serum [...] found at [email or web address] org. Not Available [address] [place], [address], 07/16/2020 11:05:54 07/15/19 21 07/17/2020 vitam in [...] perfo rmed at: [facility] [place] [facility] ([facility]) [address] [place] [address] Not Available [facility] ([facility]) [address] [facility], [place], [address], 07/17/2020 10:14:45 Result Notes None recorded. Problems Name Problem SNOMED Code Status Onset Date Resolution Date Notes Provider Name and Address Organization Details Recorded Time Osteopen ia 675161222 Active 201308/29/13 dexa Golden Bush MD [address], [place], [address] , [facility] 6 21:36:21 Screenin g mammogra phy Active 2014 5---> 03/03/17 Golden Bush MD [address], [place], [address] , [facility] 7 18:31:06 Tenosyno vitis of fingers 932962905 Active 2015 right third finger Golden Bush MD [address], [place], [address] , [facility] 6 10:20:23 Serous otitis media 01314966 Active 2015 [address], [place], [address] , [facility] - [facility] 6 10:20:33 Anemia 224539807 Active 2015 MD [address], [place], [address] , [facility] 6 10:20:49 Depressi ve disorder 26394712 Active 2015 fluoxeti ne 20-->40 Golden Bush MD [address], [place], [address] , [facility] - [facility] 0 13:19:47 Arthriti s 1875363 Active 2015 knees back and shoulder s Golden Bush MD [address], [place], [address] , [facility] 6 10:24:55 Vertigo 003371850 Active 2015 Golden Bush MD [address], [place], [address] , [facility] 6 14:21:34 Adult health examinat ion Active 2016 colon 2013/par ker said redo in 5/mammo and dexa/// declines at all Golden Bush MD [address], [place], [address] , [facility] 0 13:19:35 Fatigue 31573440 Active 2016 tsh barely off Golden Bush MD [address], [place], [address] , [facility] 7 12:41:59 Bilatera l cataract s 05376995 Active 2016 khris, s/p removal Alona Holcomb PA-C [address], [place], [address] , [facility] 1 15:51:45 Pre-surg snoia evaluati on Active 2016 cataract s// bilatera l// norbert khris Bush MD [address], [place], [address] , [facility] 7 09:36:11 Restless legs 18879531 Active 2016 ropinaro le 1 hs Golden Bush MD [address], [place], [address] , [facility] 9 07:50:10 Neck pain 13491535 Active 2016 Golden Bush MD [address], [place], [address] , [facility] 7 13:07:08 Thoracic back sprain 668071251 Active 2016 Golden Bush MD [address], [place], [address] , [facility] 7 13:07:20 Contact dermatit is 25292699 Active 2016 Golden Bush MD [address], [place], [address] , [facility] 7 17:47:21 Food poisonin g 54102734 Active 2017 wendy lettuce Golden Bush MD [address] [facility] [address], [place], [address] , [facility] 8 17:47:46 Vitamin D deficien cy 28300156 Active 07/2015 Golden Bush MD [address] [facility] [address], [place], [address] , [facility] 6 21:38:05 Pure hypercho lesterol emia 224583805 Active simvasta tin 40--> crestor 40 Golden Bush MD [address] [facility] [address], [place], [address] , [facility] 9 13:40:26 Gastroes ophageal reflux disease 291478814 Active pantopra zole 40 Golden Bush MD [address] [facility] [address], [place], [address] , [facility] 9 07:49:30 Internal hemorrho ids 73144367 Active 2018 Golden Bush MD [address], [place], [address] , [facility] 9 09:46:57 Pain of right shoulder joint 84718621604 748176 Active 2018 may inject Golden Bush MD [address], [place], [address] , [facility] 9 09:52:24 Acute bronchit is 59713476 Active 2018 Golden Bush MD [address], [place], [address] , [facility] 9 16:03:17 Postmeno [facility] 83351075 Active 2019 Golden Bush MD [address], [place], [address] , [facility] 0 11:48:26 Body mass index 25-29 - overweig ht 226487791 Active 2020 [facility] 1 09:16:47 Disorder of bone and articula r cartilag e 364090405 Completed 10/14/2015 Golden Bush MD [address], [place], [address] , [facility] 6 21:35:39 Osteopor osis 77292608 Completed 10/14/2015 Goledn Bush MD [address], [place], [address] , [facility] 6 21:37:12 Dizzines s and giddines s 922198311 Active Not Available [facility] 6 04:15:17 Otalgia 85894608 Active Not Available [facility] 6 04:15:30 Nausea 144243722 Active Not Available [facility] 6 04:15:42 Problem Notes None recorded. Procedures Surgical History Date Name Laterality Status Provider Name and Address Organization Details Recorded Time 03/03/20 17 Mammogram screening completed Golden Bush MD [address], [place], [address], [facility] 03/03/2017 18:31:32 02/25/20 17 Date of Last Mammogram completed Ilsa Pinedo [facility] 12/02/2020 09:28:35 06/26/19 13 Colonoscopy completed Cami Joinerwilfrid [facility] 10/14/2015 16:10:46 03/18/20 10 Egd biopsy single/multiple completed Juanataylor Colon [facility] 08/18/2016 14:58:59 03/11/20 10 Date of Last Colonoscopy completed Juana Colon [facility] 08/18/2016 14:58:28 03/11/20 10 Colonoscopy & polypectomy completed Juanataylor Colon [facility] 08/18/2016 15:00:29 11/18/19 09 Cltx rdl shft fx w/o mnpj completed Juanataylor Colon [facility] 08/18/2016 15:02:09 Cataract Surgery completed Golden Bush MD [address] [facility], [place], [address], [facility] 04/12/2020 11:41:51 Breast Biopsy completed Juanataylor Colon [facility] 08/18/2016 15:03:19 Removal of tonsils completed Lanie Alexandra [facility] 01/12/2016 14:11:20 Hysterectomy completed Lanie ONTIVEROS Marybeth scension [facility] 01/12/2016 14:11:20 Unlisted px meckel's dvrtclm completed Juanataylor Colon [facility] 08/18/2016 15:03:13 Imaging Results None recorded. Procedure Notes None recorded. Medical Equipment None Reported. Allergies Allergen ID Allergen Name Allergen Category Reaction Reaction Severity Criticality Documentation Date Start Date Code Code System Note Provider Name and Address Organization Details Recorded Time 06350 acetamino phen / hydrocodo ne medicatio n Not available Not available Not available 10/14/2015 68367 2 RxNorm Camivivien Cabellokarli ybarra [facility] 6 16:09:43 Medications Name Sig Start Date [...] Available Not Available Not Available Fluzone High-Dose 4231-3481 (PF) 180 mcg/0.5 mL intramuscul ar syringe [...] Updated DateTime 1 168.15 cm 27.3 kg/m2 20645.1 g 87 /min 16 /min 98.3 [degF] 98 % 98 % 124 mm[Hg] 85 mm[Hg] Lanie Alexandra [facility] 1 08:45:55 Date Recorded Body height Body mass index (BMI) Body weight Heart rate Respiratory rate Body temperature Oxygen saturation Oxygen saturation in Arterial blood by Pulse oximetry Systolic blood pressure Diastolic blood pressure Provider Name and Address Organization Details Last Updated DateTime 1 168.15 cm 28.6 kg/m2 03841.4 4 g 75 /min 18 /min 98.1 [degF] 98 % 98 % 178 mm[Hg] 90 mm[Hg] Nathan Banks [facility] 1 09:16:30 Date Recorded Body height Body mass index (BMI) Body weight Body temperature Respiratory rate Heart rate Oxygen saturation Oxygen saturation in Arterial blood by Pulse oximetry Systolic blood pressure Diastolic blood pressure Provider Name and Address Organization Details Last Updated DateTime 1 168.15 cm 28.1 kg/m2 68889.6 6 g 98.1 [degF] 18 /min 75 /min 95 % 95 % 151 mm[Hg] 84 mm[Hg] Ilsa Pinedo [facility] 1 09:15:49 Social History Question Answer Notes LastModified by Organizat ion Details LastModified Time Tobacco Smoking Status Never Smoker Cami ybarra [facility] 10/14/2015 16:11:22 Do You Have An Advance Directive? No [email or web address] Information not available 02/24/2017 What Is Your Level Of Alcohol Consumption? None [email or web address] Information not available 02/24/2017 Are You Blind Or Do You Have Difficulty Seeing? No [email or web address] Information not available 02/24/2017 What Is Your Level Of Caffeine Consumption? Occasional [email or web address] Information not available 02/24/2017 How Much Tobacco Do You Chew? None [email or web address] Information not available 02/24/2017 What Is Your Code Status? Full Code [email or web address] Information not available 03/13/2019 Are You Currently Employed? Yes Information not available 02/24/2017 Are You Deaf Or Do You Have Serious Difficulty Hearing? No [email or web address] Information not available 02/24/2017 What Type Of Diet Are You Following? REGULAR [email or web address] Information not available 02/24/2017 Which Illicit Or Recreational Drugs Have You Used? None [email or web address] Information not available 02/24/2017 Do You Or Have You Ever Used E-cigarettes Or Vape? 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 Single Level Home Information not available 02/24/2017 What Is Your Home Situation? Other [email or web address] Information not available 02/24/2017 Live Alone Or With Others? With Others [email or web address] Information not available 02/24/2017 Have You Had A Fall Within The Last Year With Injury No [email or web address] Information not available 02/24/2017 Walking With Aids? No Information not available 02/24/2017 What Type Of Walking Aid? None Information not available 02/24/2017 Patients Living Environment Safe And Secure? No [email or web address] Information not available 02/24/2017 High Risk For Falls? No [email or web address] Information not available 02/24/2017 If You Have Any Questions, Our Care Team Is Here For You. We Can Help You Find The Screening Option That Is Right For You. Would You Like To Be Given Information About Colon Cancer And Screening Options? No Information not available 03/13/2019 Readiness To Learn Accepting [email or web address] Information not available 02/24/2017 Barriers To Learning Language [email or web address] Information not available 10/23/2017 Learning Preferences No Preferences Information not available 02/24/2017 In The Last [...] Did You Ever Eat Less Than You [place] You Should Because There Wasn? t Enough [...] Respiratory Illness (cough, Difficulty Breathing, Etc)? No Information not available 04/13/2020 Marital Status Lamont [email or web address] Informatio n not available 10/14/2015 What Was The Date Of Your Most Recent Tobacco Screening? 12/02/2020 [email or web address] Information not available 12/02/2020 How Many Children Do You Have? 1 [place]ar [email or web address] Information not available 10/14/2015 Do You Use Protection During Sex? No [email or web address] Information not available 02/24/2017 What Is Your Relationship Status? [email or web address] Information not available 02/24/2017 Do You Use Your Seat Belt Or Car Seat Routinely? Yes [email or web address] Information not available 02/24/2017 Seat Belts Used Routinely Yes Information not available 02/24/2017 Are You Sexually Active? Yes [email or web address] Information not available 02/24/2017 Smoke Alarm In Home Yes [email or web address] Information not available 02/24/2017 Do You Have Smoke And Carbon Monoxide Detectors In Your Home? Yes [email or web address] Information not available 02/24/2017 Are You Passively Exposed To Smoke? No [email or web address] Information not available 02/24/2017 Do You Or Have You Ever Used Smokeless Tobacco? Never Used Smokeless Tobacco Information not available 03/13/2019 How Much Tobacco Do You Smoke? No [email or web address] Information not available 02/24/2017 General Stress Level Low [email or web address] Information not available 02/24/2017 Do You Use Sunscreen Routinely? Yes Information not available 02/24/2017 On What Date Was Tobacco Cessation Counseling Provided? 12/02/2020 wade Information not available 12/02/2020 How Many Years Have You Smoked Tobacco? 0 Information not available 02/24/2017 Work Related Injury? No [email or web address] Information not available 02/24/2017 Do You Have Symptoms Associated With Zika Virus (fever, Rash, Joint Pain, Or Conjunctivitis)? No [email or web address] Information not available 02/24/2017 Have You Recently (within The Last 12 Weeks, Or During A Current ) Traveled To Or Lived In A Zika-affected Area? No [email or web address] Information not available 02/24/2017 Sex: Female Functional Status Question Answer Note LastModified by Organizat ion Details LastModified Time Do you have transportation difficulties? No [email or web address] Information not available 02/24/2017 Are you able to walk? YESWOREST [email or web address] Information not available 03/13/2019 Do you have difficulty doing errands alone? No [email or web address] Information not available 02/24/2017 Are you able to care for yourself? Yes Information not available 02/24/2017 Do you have difficulty dressing or bathing? No [email or web address] Information not available 02/24/2017 What is your exercise level? None [email or web address] Information not available 02/24/2017 Mental Status Question Answer Note LastModified by Organization D etails LastModified Time Do you have difficulty concentrating, remembering or making decisions? No [email or web address] Information no t available 02/24/2017 Family History [...] 14:10:43 Medical History Condition Response cancer N arthritis N heart disease N lung disease N allergies Y other gastrointestinal issue Y depression Y osteoporosis Y high blood pressure N eczema Y other Y acid reflux/GERD Y neurologic disease N diabetes mellitus N musculoskeletal disease N high cholesterol N Gynecological History Statement/Question Response Location of Mammogram [place] Date of Last Mammogram 02/24/2017 Date of [...] mL dose 1 completed Kwaku Guzman [facility] 08/14/2020 13:22:02 Influenza, split virus, quadrivalent, preservative 0 completed Golden Bush MD [address] [facility], [place], [address], [facility] 04/13/2020 13:17:14 Influenza, high-dose, trivalent, PF 7 completed Not Available [facility] 07/13/2019 02:42:03 Pneumococcal conjugate PCV 13 8 completed Not Available [facility] 07/13/2019 02:24:58 pneumococcal polysaccharide PPV23 9 completed Not Available [facility] 07/13/2019 02:28:18 Influenza, split virus, quadrivalent, PF 9 completed Not Available [facility] 07/13/2019 02:56:29 COVID-19, mRNA, LNP-S, PF, 30 mcg/0.3 mL dose 1 completed Nachojemima Bach CMA null, [place] [facility] 07/24/2020 15:37:21 Past Encounters Encounter ID Performer Location Encounter Start Date Encounter Closed Date Diagnosis/Indication Diagnosis SNOMED-CT Code Diagnosis ICD10 Code Diagnosis Note [id number] [facility] [place] [address] [facility] [address] [place] [address] 05/13/2014 14:08:16 05/13/2014 15:54:50 Otalgia 46714887 Nausea 679259284 Dizziness and giddiness 453462922 [id number] [facility] [place] [address] [facility] [address] [place] [address] 08/25/2014 08:36:20 08/25/2014 11:59:51 Pure hypercholesterolemia 536170661 Gastroesop hageal reflux disease 569577433 Vitamin D deficiency 18908996 Disorder o f bone and articular cartilage 497027727 [id number] [facility] [place] [address] [address] [place] [address] 08/25/2014 00:00:00 08/26/2014 00:00:00 Pure hypercholesterolemia 412669791 [id number] [facility] [place] [address] [facility] [address] [place] [address] 08/11/2015 08:23:41 08/11/2015 17:37:42 Pure hypercholesterolemia 202731601 Vitamin D deficiency 32811893 Osteoporosis 43906392 Gastroesop hageal reflux disease 455672038 [id number] [facility] [place] [address] [address] [place] [address] 08/11/2015 00:00:00 08/12/2015 00:00:00 Gastroesophageal reflux disease 416457737 [id number] Golden Bush MD [facility] [place] [address] [place] [address] 10/15/2015 09:31:27 10/15/2015 14:43:52 Serous otitis media 31584862 H65.01 Tenosynovi tis of fingers 656485808 M65.849 offered steroids Pure hypercholesterolemia 285404379 E78.0 cmp lipid Vitamin D deficiency 347 11477 E55.9 25 oh vit d Anemia 739479800 D64.9 cbc ferritin Depressive disorder 3548 9007 F32.9 Arthritis 3762998 M19.90 [id number] [facility] S[facility]_A101 [address] [place] [address] [place] [address] 10/15/2015 00:00:00 10/16/2015 00:00:00 Anemia [id number] Golden Bush MD [facility] [address] [facility] [address] [place] [address] 01/12/2016 13:40:02 01/12/2016 17:36:52 Vertigo 014291254 R42 Gastroesop hageal reflux disease 809239532 K21.9 Serous otitis media 8032 7007 H65.01 [id number] Golden Bush MD [facility] [address] [facility] [address], [address] [place] [address] 08/10/2016 09:12:06 08/10/2016 12:54:33 Adult health examination 191024243 Z00.00 Screening mammography 24 724627 Z12.31 Osteopenia 567684645 M85 .80 Vitamin D deficiency 347 23640 E55.9 Pure hypercholesterolemia 056055411 E78.00 Gastroesop hageal reflux disease 674234531 K21.9 Depressive disorder 3548 9007 F32.9 Fatigue 88514646 R53.83 Bilateral cataracts 9572 2003 H26.9 [id number] Golden Bush MD [facility] [address] [facility] [address], [address] [place] [address] 10/03/2016 11:34:46 10/03/2016 15:03:29 Adult health examination 930579442 Z00.00 Osteopenia 656446677 M85 .80 Screening mammography 24 576111 Z12.31 Vitamin D deficiency 347 71022 E55.9 Fatigue 80048326 R53.83 Bilateral cataracts 9572 2003 H26.9 pinedo Menopause 716773002 N95. 1 [id number] Golden Bush MD [facility] [address] [facility] [address], [address] [place] [address] 11/08/2016 08:38:17 11/08/2016 10:08:22 Pre-surgery evaluation 839412218 Z01.818 Bilateral cataracts 9572 2003 H26.9 pinedo Arthritis 4654965 M19.90 Restless legs 04962653 G 25.81 [id number] Golden Bush MD [facility] [address] [facility] [address] [place] [address] 12/15/2016 11:43:35 12/15/2016 13:16:55 Neck pain 31276074 M54.2 Thoracic back sprain 274 030565 S23.3XXA Tenosynovi tis of fingers 864912099 M65.849 offered steroids/i njected 12/15/16 [id number] Golden Bush MD [facility] [address] [facility] [address] [place] [address] 02/24/2017 16:21:35 02/24/2017 18:00:17 Contact dermatitis 24914303 L25.9 [id number] Alona Holcomb PA-C [facility] [address] [facility] [address], [address] [place] [address] 07/31/2017 10:35:07 07/31/2017 12:45:01 Adult health examination 735402161 Z00.01 Counseling 887259966 Z71 .9 Active or passive immunization 517906081 Z23 Pure hypercholesterolemia 286664109 E78.00 Gastroesop hageal reflux disease 746026644 K21.9 Restless legs 50195924 G 25.81 Arthritis 1916144 M19.90 Dizziness 779220218 R42 Depressive disorder 3548 9007 F32.1 Contact dermatitis 64639 004 L25.9 Fatigue 59931790 R53.83 Increased frequency of urination 343566693 R35.0 Acute urin jonathan tract infection 763846086 N39.0 [id number] Alona ZACARIAS-C [facility] [address] [facility] [address], [address] [place] [address] 08/02/2017 10:24:01 08/02/2017 15:28:51 Pure hypercholesterolemia 290008119 E78.00 Neck pain 49564509 M54.2 Hemorrhoids 25181774 K64 .9 [id number] Alona ZACARIAS-C [facility] [address] [facility] [address], [address] [place] [address] 08/28/2017 16:38:35 08/28/2017 17:41:46 Neck pain 89920976 M54.2 Otitis externa 8674802 H 60.91 [id number] Golden Bush MD [facility] [address] [facility] [address], [address] [place] [address] 10/23/2017 16:24:32 10/23/2017 17:52:17 Body mass index 25-29 - overweight 594067168 Z68.27 Food poisoning 56353766 A05.9 possibly// wendy lettuce Nausea 519992381 R11.0 [id number] Alona ZACARIAS-C [facility] [address] [facility] [address], [address] [place] [address] 11/16/2017 10:25:29 11/16/2017 17:04:53 Viral upper respiratory tract infection 378335931 J06.9 [id number] Alona Holcomb PA-C [facility] [address] [facility] [address], [address] [place] [address] 08/06/2018 10:24:39 08/06/2018 15:58:10 Cough 61559053 R05 Viral uppe r respiratory tract infection 374222431 J06.9 Pure hypercholesterolemia 786295567 E78.00 Pain in throat 112613831 R07.0 [id number] Golden Bush MD [facility] [address] [facility] [address], [address] [place] [address] 09/27/2018 09:06:00 09/27/2018 10:53:33 Adult health examination 294030439 Z00.01 Body mass index 25-29 - overweight 942791608 Z68.27 E66.3 Pure hypercholesterolemia 494179148 E78.00 Gastroesop hageal reflux disease 525169719 K21.9 Depressive disorder 3548 9007 F32.9 Vitamin D deficiency 347 60582 E55.9 Arthritis 0960849 M19.90 Internal hemorrhoids 904 69426 K64.8 [id number] Alona Holcomb PA-C [facility] [address] [facility] [address], [address] [place] [address] 03/13/2019 08:17:10 03/13/2019 11:15:13 Adult health examination 457881438 Z00.00 Counseling 805869875 Z71 .9 Active or passive immunization 708798305 Z23 Contact dermatitis 31718 004 L25.9 Gastroesop hageal reflux disease 124933695 K21.9 Pure hypercholesterolemia 582232216 E78.00 Osteopenia 409965460 M85 .80 Restless legs 50729930 G 25.81 Vitamin D deficiency 347 88251 E55.9 Depressive disorder 3548 9007 F32.1 Bilateral cataracts 9572 2003 H26.9 [id number] Golden Bush MD [facility] [address] [facility] [address], [address] [place] [address] 05/27/2019 15:27:35 05/27/2019 16:50:40 Body mass index 25-29 - overweight 990970019 Z68.28 E66.3 Serous otitis media 8032 7007 H65.01 Acute bronchitis 6219741 2 J20.9 [id number] Golden Bush MD [facility] [address] [facility] [address], [address] [place] [address] 04/13/2020 12:13:09 04/13/2020 14:15:28 Pure hypercholesterolemia 212440220 E78.00 Depressive disorder 3548 9007 F32.9 Screening mammography 24 069521 Z12.31 declines Postmenopausal state 764 36568 Z78.0 declines Arthritis 7817070 M19.90 Tenosynovi tis of fingers 881723247 M65.849 offered steroids/i njected 12/15/16 [phone] (pt number) [id number] Alona Holcomb PA-C [facility] [address] [facility] [address], [address] [place] [address] 07/15/2020 08:38:08 07/15/2020 11:03:08 Adult health examination 775584542 Z00.00 Body mass index 25-29 - overweight 232853277 Z68.27 E66.3 Depressive disorder 3548 9007 F32.1 Gastroesop hageal reflux disease 834538525 K21.9 Pure hypercholesterolemia 692648418 E78.00 Vitamin D deficiency 347 60357 E55.9 Arthritis 9424355 M19.90 Osteopenia 018374551 M85 .80 [id number] Gunnar Doshi MD [facility] S_COVID19 [address] [place] [address] 07/24/2020 14:57:02 07/24/2020 16:35:12 Administration of SARS-CoV-2 antigen vaccine 756399899 Z23 [id number] Gunnar Doshi MD [facility] S_COVID19 [address] [place] [address] 08/14/2020 13:09:45 08/14/2020 13:30:22 Administration of SARS-CoV-2 antigen vaccine 181203258 Z23 [id number] Alona Holcomb PA-C [facility] [address] [facility] [address], [address] [place] [address] 10/12/2020 08:42:53 10/12/2020 10:38:43 Arthritis 7884118 M19.90 Depressive disorder 3548 9007 F32.1 Contact dermatitis 02271 004 L25.9 Gastroesop hageal reflux disease 783537764 K21.9 Pure hypercholesterolemia 912387193 E78.00 Vertigo 253202113 R42 [id number] Alona Holcomb PA-C [facility] [address] [facility] [address] [address], [address] [place] [address] 12/02/2020 08:44:58 12/02/2020 11:41:31 Body mass index 25-29 - overweight 108271822 Z68.27 E66.3 Depressive disorder 3548 9007 F32.1 Gastroesop hageal reflux disease 169235173 K21.9 Health Concerns Section Related Observation LastModified by Organization Detai ls LastModified Time None Recorded Concern Status LastModified by Organization Details LastModified Time None Recorded Advance Directives Directive N: Payers Encounter Date Sequence Insurance Name Policy Number Policy Schultz Covered Member ID Schultz Member ID Guarantor Name 07/15/2020 2 [employer] - FOR LIFE (MEDICARE SUPPLEMENT) Zahra Yao [id number] Zahra Yao 07/15/2020 1 [employer] (MEDICARE REPLACEMENT/ADV ANTAGE - HMO) [id number] Zahra Yao [id number] Zahra Yao 07/24/2020 2 [employer] - FOR LIFE (MEDICARE SUPPLEMENT) Zahra Yao [id number] Zahra Yao 08/14/2020 1 [employer] (MEDICARE REPLACEMENT/ADV ANTAGE - HMO) [id number] Zahra Yao [id number] Zahra Yao 08/14/2020 3 [place] Zahra Yao [id number] Zahra Yao 10/12/2020 2 [employer] - FOR LIFE (MEDICARE SUPPLEMENT) Zahra Yao [id number] Zahra Yao 10/12/2020 1 [employer] (MEDICARE REPLACEMENT/ADV ANTAGE - PPO) Zahra Yao [id number] Zahra Yao 12/02/2020 2 [employer] - FOR LIFE (MEDICARE SUPPLEMENT) Zahra Yao [id number] Zahra Yao 12/02/2020 1 [place] (MEDICARE REPLACEMENT/ADV ANTAGE - HMO) [id number] Zahra Yao [id number] Zahra Yao Notes Date Note Type Note Provider Name and Address Organization Details Recorded Time 07/15/2020 text/html [facility] ss TemplateReported bypatient.Reason for Visit:Subsequent Annual [...] please see scanned attachment Alona Holcomb PA-C [address], [place], [address], [place] [facility] 08/05/2020 15:52:57 10/12/2020 text/html VertigoReported bypatient.Onset/Timing: ongoing; fluctuating Quality:room spinning; lightheadedness; unsteadiness; off balance; faint feeling Duration:continuous; sensation/episode variable length Severity:does not limit daily activities; no falls; no difficulty with driving Location:no earache; no hearing loss; no ear fullness; no associated ringing in ears Context:no history of head trauma Alleviating factors: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, [place], [address], [facility] 12/09/2020 14:36:10 OBGyn Episode No OBEpisode recorded.
--- NOTE | 2024-10-09 10:53 | A.OFFVIS_ITS ---
Vital Signs 10/09/24 11:01 Height 5 ft 6 in Weight 167 lb BMI 27.0 BP 120/70 Pulse 76 Pulse Source Pulse Oximeter Pulse Oximetry (%) 94 Oxygen Delivery Method Room Air Intake Visit Reasons: dyspnea Tv News Director Required: No Eyewear Manufacturing Tech: Eyewear Manufacturing Tech offered & declined Accompanied by: Self / Same As Patient Allergies lisinopril Adverse Reaction (Uncoded 10/09/24 11:05) cough Medication List - Last Reconciled 10/09/24 by Justyna Nolasco LPN budesonide-formoterol 80-4.5 mcg/actuation (Breyna) 2 puffs inhalation BID celecoxib 200 mg PO DAILY cetirizine 10 mg PO DAILY PRN fluoxetine 10 mg PO DAILY gabapentin 100 mg PO TID hydroxyzine HCl 25 mg PO DAILY loratadine 10 mg PO DAILY meclizine 12.5 mg PO TID PRN pantoprazole 40 mg PO DAILY rosuvastatin 40 mg PO DAILY valsartan 80 mg PO DAILY HPI HPI dyspnea: Details: Zahra is a pleasant 79 year old female, former smoker, with 10 pack year history, quit 30+ years ago with underlying asthma and GERD. At the last visit, she was started on Advair for ongoing dyspnea, wheezing and intermittent dry cough as well as paroxsymal nocturnal dyspnea. She reports overall improvement in symptoms, with occasional dry cough and feels symptoms are well controlled. She denies any visits to urgent care or hospitalizations related to respiratory distress since the last visit. Today she presents to review [facility] Social History Patient Tobacco Use Status: Former Tobacco user Tobacco use type: Cigarette Cigarette Packs Per Day: 2 Years Smoked: 20 year smoker Review of Systems Const Denies chills, Denies excessive sweating, Denies fever(s), Denies headache(s) and Denies night sweats Eyes Denies dry eyes, Denies irritation and Denies itchy eyes ENT Reports Normal hearing present, Denies headache(s), Denies nasal congestion, Denies post nasal drip and Denies sore throat Card Denies chest pain, Denies chest pain at rest, Denies chest pain with activity, Denies claudication, Denies leg edema, Denies orthopnea and Denies paroxysmal nocturnal dyspnea Resp Denies chest congestion, Reports cough, Denies hemoptysis, Denies excessive phlegm production, Denies pain on inspiration, Denies pain with cough and Denies stridor Musc Denies myalgias Neuro Reports Normal hearing present and Denies headache(s) Endo Denies excessive sweating Garret/Lymph Denies lymphadenopathy Aller/Immun Denies itchy eyes and Denies seasonal rhinorrhea Physical Exam Vital Signs: Last Vital Signs Pulse 76 10/09/24 11:01 BP 120/70 10/09/24 11:01 Pulse Ox 94 10/09/24 11:01 Oxygen Delivery Method Room Air 10/09/24 11:01 BMI result Body Mass Index 27.0 Const General: cooperative, healthy appearing, comfortable, no acute distress, well developed and alert Orientation/consciousness: patient oriented x3 Limitations: no limitations HEENT Head: Yes normal to inspection, Yes normocephalic and Yes atraumatic Ears: hearing grossly normal bilaterally and external ears normal Eyes General: appearance normal, both eyes and all related structures Eyelids: Yes eyelids normal Sclerae: sclerae normal EOM: EOMs intact bilaterally Neck Neck: Yes normal visual inspection and Yes no lymphadenopathy Lymphatic: no lymphadenopathy noted Chest Chest palpation & inspection: normal inspection of the chest Resp Effort & Inspection: normal respiratory effort, able to speak in complete sentences, no audible wheezes, no cough, no stridor, not tachypneic, no tripod positioning and no use of accessory muscles Auscultation: clear to auscultation bilaterally Cardio Jugular venous distension: no JVD Rate: regular rate Rhythm: regular rhythm Skin Other: warm, dry General skin exam: no rashes or lesions noted Neuro General: patient oriented x3 Cranial nerves: Yes Normal hearing present Cognition (Neuro): normal cognition Gait exam (Neuro): Normal gait present Extrem General: Yes normal to inspection, Yes capillary refill normal, Yes no clubbing, cyanosis or edema and Yes no pedal edema Psych Appearance: grossly normal and well kempt Speech and movement: Normal speech and movement present and Clear speech present Affect: normal affect Attitude: cooperative Thought process: Normal thought process present Thought content: Normal thought content present Insight: Good insight present (Psych) Judgement: Good judgement present (Psych) Assessment & Plan Assessment & Plan (1) Reactive airway disease: Code(s): J45.909 - Unspecified asthma, uncomplicated Category: Medical (2) Environmental allergies: Code(s): Z91.09 - Other allergy status, other than to drugs and biological substances Category: Medical (3) Dyspnea: Code(s): R06.00 - Dyspnea, unspecified Category: Medical Plan At this time, Zahra reports good control of respiratory symptoms on Advair, advised to continue. Discussed methacholine challenge however would defer at this time, as management of symptoms would not change and patient with controlled symptoms. Reviewed RAST which was negative. All questions were answered and patient is in agreement of plan. Will follow up in 3 months or sooner if needed. Coding Level of Care Code Est Pt Level 4 (18358) Diagnoses Reactive airway disease J45.909 Environmental allergies Z91.09 Dyspnea R06.00
[2024-10-09 11:01] VITALS: BP 120/70; PULSE 76; O2SAT 94; BMI 27.0
== END 2024-10-09 11:28 | disposition home or self-care (01) ==
PROVIDERS: PCP Family Medicine; Visit Provider Nurse Practitioner Family
DX: J45.909 Unspecified asthma, uncomplicated (principal); Z91.09 Other allergy status, other than to drugs and biological substances; R06.00 Dyspnea, unspecified
CPT/HCPCS: 99214

== ENCOUNTER → 2024-10-09 09:21 | Outpatient (BNVA) | payer OTHER, SELFPAY | PROVIDERS: PCP Family Medicine; Visit Provider Nurse Practitioner Family | DX: J45.909 Unspecified asthma, uncomplicated (principal); R06.00 Dyspnea, unspecified; Z91.09 Other allergy status, other than to drugs and biological substances | CPT/HCPCS: 99212 ==